=== PATIENT | female | born 1970 | race Caucasian/White ===

== ENCOUNTER → 2017-04-21 | Outpatient (CLI) | payer OTHER | LOC: BRMIMAGING 08:38 | PROVIDERS: ATTEND Internal Medicine | DX: Z13.820 Encounter for screening for osteoporosis (principal); M85.80 Other specified disorders of bone density and structure, unspecified site; E21.0 Primary hyperparathyroidism; M54.9 Dorsalgia, unspecified; Z87.81 Personal history of (healed) traumatic fracture; Z82.62 Family history of osteoporosis ==

== ENCOUNTER → 2017-05-13 | Outpatient (CLI) | payer OTHER | LOC: FIMAGING 09:09 | PROVIDERS: ATTEND Surgery | DX: E21.0 Primary hyperparathyroidism (principal) | CPT/HCPCS: A9500 ==

== ENCOUNTER 2017-05-31 05:16 | Observation (INO) | payer OTHER ==
[2017-05-31] MEDS ORDERED: LR 1,000 ML IV ONE (05:34)
[2017-05-31] MEDS ORDERED: LIDOCAINE 1% 2 ML INJ ID PRN (05:34)
[2017-05-31] MEDS ORDERED: ceFAZolin 2 GM/SWFI 2 GM/20 ML SYR IVP ONE (06:00)
--- NOTE | 2017-05-31 06:53 | PDANEPAE ---
ANE History of Present Illness 46 year old female presents for parathyroidectomy. ANE Past Medical History - Cardiovascular History Hx Hypertension: No Hx Arrhythmias: No Hx Chest Pain: No Hx Coronary Artery / Peripheral Vascular Disease: No Hx CHF / Valvular Disease: No Hx Palpitations: No - Pulmonary History Hx COPD: No Hx Asthma/Reactive Airway Disease: No Hx Recent Upper Respiratory Infection: No Hx Oxygen in Use at Home: No Hx Sleep Apnea: No Sleep Apnea Screening Result - Last Documented: Negative - Neurologic History Hx Cerebrovascular Accident: No Hx Seizures: No Hx Dementia: No - Endocrine History Hx Diabetes: No Hypothyroid: No Hyperthyroid: No - Renal History Hx Renal Disorders: No - Liver History Hx Hepatic Disorders: No - Neurological & Psychiatric Hx Hx Neurological and Psychiatric Disorders: No Neurological / Psychiatric History Comment: Reports bilateral numbness to both big toes over past couple years - Cancer History Hx Cancer: No - Congenital Disorder History Hx Congenital Disorders: No - GI History Hx Gastrointestinal Disorders: No - Other Health History Other Health History: none - Chronic Pain History Chronic Pain: No - Surgical History Prior Surgeries: total hysterectomy,2013. radial head fx repair 2013 ANE Review of Systems Review of systems is: negative Review of Systems: - Exercise capacity Exercise capacity: >=4 METS METS (RN): 5 METS ANE Patient History - Allergies Allergies/Adverse Reactions: No Known Allergies Allergy (Verified 05/30/17 11:14) - Home Medications Home medications: home medication list seen and reviewed - NPO status NPO Status: no food or drink >8 hours NPO Since - Liquids (Date): 05/30/17 NPO Since - Liquids (Time): 22:30 NPO Since - Solids (Date): 05/30/17 NPO Since - Solids (Time): 20:30 - Anes Hx Anes Hx: no prior problems - Smoking Hx Smoking Status: Former smoker Marijuana use: Yes - Alcohol Use Alcohol Use: None - Family Anes Hx Family Anes Hx: neg - N/A Family Hx Anesthesia Complications: none ANE Labs/Vital Signs - Vital Signs Vital Signs: reviewed preoperatively; see RN documention for details Blood Pressure: 107/78 Heart Rate: 52 Respiratory Rate: 16 O2 Sat (%): 96 Height: 162.56 cm Weight: 78.925 kg ANE Physical Exam - Airway Neck exam: increased neck circumference Mallampati Score: Class 1 Mouth exam: normal dental/mouth exam - Pulmonary Pulmonary: no respiratory distress - Cardiovascular Cardiovascular: regular rate and rhythym - ASA Status ASA Status: II ANE Anesthesia Plan Anesthesia Plan: general endotracheal anesthesia Total IV Anesthesia: No
[2017-05-31] MEDS ORDERED: THROMBIN (BOVINE) 5,000 UNIT VIAL TP ONE (06:56)
[2017-05-31] MEDS ORDERED: BUPIVACAINE 0.5% 30 ML SDV ONE (06:57)
--- NOTE | 2017-05-31 07:02 | PDHPUP ---
History & Physical Update H&P update statement: This history and physical update is based on an assessment of the patient which was completed after admission or registration (within 24 hours), but prior to the surgery/procedure. H&P update: H&P reviewed & patient examined, no change in patient's condition since H&P completed
[2017-05-31] MEDS ORDERED: BUPIVACAINE/EPI 0.5% 30 ML SDV ONE (07:06)
[2017-05-31] MEDS ORDERED: MIDAZOLAM 2 MG/2 ML VIAL ONE (07:15)
[2017-05-31] MEDS ORDERED: PROPOFOL 200 MG/20 ML VIAL ONE (07:15)
[2017-05-31] MEDS ORDERED: fentaNYL 100 MCG/2 ML INJ ONE ×3 (07:15→10:07)
[2017-05-31] MEDS ORDERED: ROCURONIUM 50 MG/5 ML VIAL ONE (07:53)
[2017-05-31] MEDS ORDERED: ONDANSETRON 4 MG/2 ML VIAL ONE (07:53)
[2017-05-31] MEDS ORDERED: LIDOCAINE 2% 5 ML SDV ONE (07:53)
[2017-05-31] MEDS ORDERED: DEXAMETHASONE 4 MG/ML VIAL ONE (07:53)
[2017-05-31] MEDS ORDERED: PROMETHAZINE HCL 25 MG/ML INJ IVP PRN (08:01)
[2017-05-31] MEDS ORDERED: ONDANSETRON 4 MG/2 ML VIAL IVP PRN ×2 (08:01→09:42)
[2017-05-31] MEDS ORDERED: LR 500 ML IV PRN (08:01)
[2017-05-31] MEDS ORDERED: NALOXONE HCL 0.4 MG/ML INJ IVP PRN (08:01)
[2017-05-31] MEDS ORDERED: HYDROCODONE/APAP 5/325 TAB PO PRN (08:01)
[2017-05-31] MEDS ORDERED: SUGAMMADEX SODIUM 200 MG/2 ML VIAL IVP ONE (08:21)
[2017-05-31] MEDS ORDERED: HYDROmorphONE/DILAUDID 1 MG/ML INJ IVP PRN (09:42)
--- NOTE | 2017-05-31 09:42 | POSTOPPROG ---
Post Op Note Date of Operation: 05/31/17 Surgeon: Melvin Arellano Music Arranger: Wero Das MD, [facility] Anesthesiologist: Franko Anesthesia: GET(General Endotracheal) Pre-op Diagnosis: Hyperparathyroidism Post-op Diagnosis: same Procedure: right superior parathyroidectomy Findings: enlarged R sup gland. Inf/Abcess present in the surg proc area at time of surgery?: No Depth: Superfical (Skin SQ) EBL: Minimal Specimen(s): R sup parathyroid gland PTH 114-43 specimen weighed 360 mg
[2017-05-31] MEDS ORDERED: D5W 1/2 NS W/ 20 KCl/L 1,000 ML IV SCH (09:45)
[2017-05-31] MEDS ORDERED: HYDROmorphONE/DILAUDID 1 MG/ML INJ ONE (10:07)
[2017-05-31] MEDS: fentaNYL 100 MCG/2 ML INJ IVP PRN ×2 (10:09→10:46)
[2017-05-31] MEDS: HYDROmorphONE/DILAUDID 1 MG/ML INJ IVP PRN ×2 (10:11→10:46)
--- NOTE | 2017-05-31 13:33 | GOP ---
[f rep st] OPERATIVE REPORT DATE OF OPERATION: 05/31/2017 SURGEON: Melvin Arellano MD WEBSITE ADMIN: Wero Das MD, Susie Yeager, KAY. ANESTHESIA: General endotracheal. ANESTHESIOLOGIST: Dr. Chang Abdul. PREOPERATIVE DIAGNOSIS: Primary hyperparathyroidism. POSTOPERATIVE DIAGNOSIS: Primary hyperparathyroidism. PROCEDURE PERFORMED: Four gland parathyroid exploration with right superior parathyroidectomy. FINDINGS: Both the superior and inferior parathyroid glands on the left were normal appearing, right inferior parathyroid normal appearing, right superior parathyroid enlarged and adenomatous appearing. Intraoperative PTH after removal of right superior parathyroid adenoma went from 114 to 43. The adenoma weighed 360 mg and was confirmed via intraoperative frozen section. SPECIMENS: Right superior parathyroid adenoma. ESTIMATED BLOOD LOSS: 5 cc. DESCRIPTION OF PROCEDURE: The patient was greeted in the preoperative suite. Once again, risks, benefits, and alternatives were discussed. Consent was signed. She was then brought back to the operative suite, placed on the OR table in a supine position. After all anesthesia machines, including SCDs, were on and functioning, [employer] time-out was performed. After successful induction of general anesthesia, the patient was prepped, was placed into a sniffing position with an axillary roll, with the neck slightly hyperextended, with all pressure points appropriately padded. Antibiotics were given on-call to the operating room. Her neck was then prepped and draped in typical sterile fashion. I commenced the procedure by making a collar incision approximately 2 fingerbreadths superior to the sternal notch, 4.5 cm in greatest length. I carried this down to the skin and the platysma. Platysmal flaps were then raised superior and inferiorly. The strap muscles were then divided in the midline and dissected off the thyroid gland, both left and right sides. I turned my attention first toward the left. Using a capsular dissection, I successfully mobilized the left lobe of the thyroid appropriately so that I could view the tracheoesophageal groove, the recurrent laryngeal nerve, and both the superior and inferior parathyroid glands. I first identified the superior gland which was in its normal anatomic location and normal in appearance. I carried my dissection inferiorly and identified the inferior parathyroid gland which was normal in appearance and location. I then turned my dissection toward the right side, again, performing a capsular dissection, successfully mobilized the thyroid gland anteriorly. I first identified a normal-appearing inferior parathyroid gland on the right side. I carried my dissection superiorly where I identified an enlarged, abnormal appearing superior parathyroid gland. I then turned my dissection inferiorly. I did identify some what appeared to be old thymus tissue inferiorly to the thyroid. I dissected through this to identify any aberrant parathyroid glands and was unsuccessful. After identifying no other significant pathology, I successfully clipped the blood supply to the right superior parathyroid adenoma. I dissected it off the tissues, successfully ligated it and passed it off. Ten minutes after removing the gland, a PTH level was drawn by Dr. Abdul of Anesthesia; the level had dropped from 114 preoperatively down to 43. Intraoperative frozen section analysis of the pathology also identified parathyroid gland with hyperplasia consistent with adenoma. Hemostasis was achieved with gentle pressure in both the right and left lobes. Again, vascularization of all remaining parathyroid glands was noted to be good. I irrigated the area with warm normal saline. I reapproximated the strap muscles with a running 3-0 Vicryl stitch. I reapproximated the platysma with a running 3-0 Vicryl stitch and the skin with a running 4-0 Monocryl, over which Dermabond and a sterile dressing were placed. The patient was then extubated in the operative suite and taken to the PACU in satisfactory condition. DRAINS: None. COUNTS: All counts reported as correct x2. /[id number]/MODL MTDD
[2017-05-31] MEDS: IBUPROFEN 600 MG TAB PO SCH ×2 (14:01→21:52)
[2017-05-31] MEDS: HYDROCODONE/APAP 5/325 TAB PO PRN ×2 (14:05→18:04)
--- NOTE | 2017-05-31 20:33 | POSTANESTH ---
Post Anesthetic Evaluation Cardiovascular Status: Normal, Stable, Similar to Pre-Op Cond Respiratory Status: Normal, Stable, Similar to Pre-op Cond. Level of Consciousness/Mental Status: Can Participate in Eval, Alert and Oriented Pain Control: Adequate, Prn Tx Ordered Nausea/Vomiting Control: Adequate, Prn Tx Ordered Complications Possibly Related to Anesthesia: None Noted
[2017-06-01] MEDS: HYDROCODONE/APAP 5/325 TAB PO PRN (00:38)
[2017-06-01] MEDS: IBUPROFEN 600 MG TAB PO SCH (05:15)
[2017-06-01 07:50] VITALS: BP 106/67; PULSE 62; RESP 14; TEMP 97.4; O2SAT 96
== END 2017-06-01 12:39 | disposition home or self-care (01) ==
LOC: FSGY 05:16 → F3E 09:43
PROVIDERS: ADMIT Surgery; ATTEND Surgery
PROC: 0GTL0ZZ Resection of Right Superior Parathyroid Gland, Open Approach (ICD-10-PCS; principal; 2017-05-31 07:30)
DX: E21.0 Primary hyperparathyroidism (principal); D35.1 Benign neoplasm of parathyroid gland; Z87.891 Personal history of nicotine dependence; Z90.710 Acquired absence of both cervix and uterus
CPT/HCPCS: G0378; J0171; J0690; J1100; J1170; J2250; J2405; J2704; J3010